=== PATIENT | female | born 1975 | race Caucasian/White ===

== ENCOUNTER → 2016-05-13 | Outpatient (CLI) | payer BC ==
[~2016-05-13] MED LIST: IBUP-1449 PO
[2016-05-13 13:49] LABS: URINE APPEARANCE CLEAR (CLEAR); URINE BILIRUBIN NEG (NEG); URINE COLOR DK YELLOW; URINE NITRITE NEG (NEG); URINE SPECIFIC GRAVITY 1.026 (1.000-1.030); UROBILINOGEN NEG (NEG)
[2016-05-13 13:59] LABS: MANUAL MICROSCOPIC REQUIRED? NO; REVIEW REQ? NO
== END | disposition home or self-care (01) ==
LOC: C.LAB1850 12:22
PROVIDERS: ATTEND Obstetrics & Gynecology
DX: R35.0 Frequency of micturition (principal)

== ENCOUNTER → 2016-05-18 | Outpatient (CLI) | payer BC ==
[2016-05-18 09:40] LABS: PREG INTERNAL NEGATIVE QC NEG CLEAR BACKGROUND; PREG INTERNAL POSITIVE QC POS CONTROL LINE
[2016-05-18 11:05] LABS: THYROID STIMULATING HORMONE 0.774 uIu/ml (0.300-4.500)
== END | disposition home or self-care (01) ==
LOC: C.LAB1850 07:04
PROVIDERS: ATTEND Obstetrics & Gynecology
DX: N91.2 Amenorrhea, unspecified (principal)

== ENCOUNTER → 2016-05-20 | Outpatient (CLI) | payer BC | END | disposition home or self-care (01) | LOC: C.LAB1850 16:47 | PROVIDERS: ATTEND Obstetrics & Gynecology | DX: N91.2 Amenorrhea, unspecified (principal) ==

== ENCOUNTER → 2017-01-08 | Outpatient (CLI) | payer BC | END | disposition home or self-care (01) | LOC: C.PAPS 08:40 | PROVIDERS: ATTEND Obstetrics & Gynecology | DX: Z01.411 Encounter for gynecological examination (general) (routine) with abnormal findings (principal); R87.610 Atypical squamous cells of undetermined significance on cytologic smear of cervix (ASC-US) ==

== ENCOUNTER → 2017-03-31 | Outpatient (CLI) | payer BC ==
--- NOTE | 2017-03-31 16:02 | MAMMOGRAPHY REPORT ---
BILATERAL DIGITAL SCREENING MAMMOGRAM TOMOSYNTHESIS WITH CAD: 03/31/2017 CLINICAL HISTORY: Routine screening. Patient has no complaints. TECHNIQUE: Breast tomosynthesis in addition to standard 2D mammography was performed. Current study was also evaluated with a Computer Aided Detection (CAD) system. COMPARISON: Comparison is made to exams dated: 12/26/2015 mammogram, 10/15/2014 mammogram, 08/21/2013 ult rasound, 08/21/2013 mammogram, and 07/20/2013 mammogram - [facility]. BREAST COMPOSITION: There are scattered areas of fibroglandular density in both breasts. FINDINGS: No suspicious masses, calcifications, or areas of architectural distortion are noted in ei ther breast. There has been no significant interval change compared to prior exams. Small circumscri bed benign-appearing masses are again noted bilaterally. IMPRESSION: ACR BI-RADS CATEGORY 2: BENIGN There is no mammographic evidence of malignancy. A 1 year screening mammogram is recommended. The pa tient will receive written notification of the results. Approximately 10% of breast cancers are not detected with mammography. A negative mammographic report should not delay biopsy if a clinically suggestive mass is present. Chiara Azul M.D. ah/:03/31/2017 15:04:36 Biology Instructor: Analilia SOFIA(R)(M), [facility] letter sent: Normal 1/2 BI-RADS Code: ACR BI-RADS Category 2: Benign
== END | disposition home or self-care (01) ==
LOC: C.MAMM 13:58
PROVIDERS: ATTEND Physician Assistant
DX: Z12.31 Encounter for screening mammogram for malignant neoplasm of breast (principal)

== ENCOUNTER → 2017-06-25 | Outpatient (CLI) | payer OTHER ==
--- NOTE | 2017-06-25 13:40 | DIAGNOSTIC IMAGING REPORT ---
RIGHT CLAVICLE 2 VIEWS HISTORY: MASS OR LUMP ON NECK COMPARISON: Chest 02/04/2016. FINDINGS: No acute fracture or dislocation within the right clavicle. There appears be focal thickening/bony protrusion within the distal shaft of the right clavicle. This may be new from the 2016 chest x-ray. There is mild AC joint arthrosis. Soft tissues are unremarkable. No radiopaque foreign bodies. IMPRESSION: Possible focal thickening/bony protrusion at the distal shaft of right clavicle. This could be due to an old fracture. Electronically signed by: Prateek Tena M.D. 06/25/2017 1:39 PM Dictated Date/Time: 06/25/2017 1:35 PM
== END | disposition home or self-care (01) ==
LOC: C.RAD1850 12:56
PROVIDERS: ATTEND Physician Assistant
DX: R22.1 Localized swelling, mass and lump, neck (principal)

== ENCOUNTER → 2017-06-25 | Outpatient (CLI) | payer OTHER ==
--- NOTE | 2017-06-25 14:11 | DIAGNOSTIC IMAGING REPORT ---
ULTRASOUND OF THE THYROID GLAND CLINICAL HISTORY: Neck mass/swelling. COMPARISON STUDY: No priors. TECHNIQUE: Real-time, grayscale, and color flow sonography of the thyroid gland is performed utilizing a high-frequency linear transducer. Images are reviewed in the transverse and longitudinal planes. FINDINGS: Right lobe: The right lobe of the thyroid gland is normal in size and homogeneous in echotexture, measuring 4.8 x 1.7 x 1.4 cm. A hypoechoic nodule in the lower pole measures 0.6 x 0.5 x 0.5 cm. Left lobe: The left lobe of the thyroid gland is normal in size and homogeneous in echotexture, measuring 5.0 x 1.4 x 1.6 cm. Isthmus: The thyroid isthmus is normal in appearance and measures 0.4 cm in AP diameter. IMPRESSION: 1. The thyroid gland is normal in size and homogeneous in echotexture. 2. A subcentimeter hypoechoic nodule is incidentally noted in the right lobe. Electronically signed by: Pedro Luis Lorenzana M.D. 06/25/2017 2:09 PM Dictated Date/Time: 06/25/2017 2:08 PM
== END | disposition home or self-care (01) ==
LOC: C.ULTR 13:30
PROVIDERS: ATTEND Physician Assistant
DX: R22.1 Localized swelling, mass and lump, neck (principal); E04.1 Nontoxic single thyroid nodule

== ENCOUNTER → 2017-07-06 | Outpatient (CLI) | payer OTHER ==
[~2017-07-06] MED LIST changes: +OPTIRAY 320 IV PRN
--- NOTE | 2017-07-06 12:30 | DIAGNOSTIC IMAGING REPORT ---
R UPPER EXTREMITY WITH CLINICAL HISTORY: SWELLING/THICKENING OF CLAVICLE pain. Edema. TECHNIQUE: Transaxial acquisition with multi axial reformatted images COMPARISON STUDY: None FINDINGS: Unremarkable soft tissue characteristics about the right clavicle and right shoulder. No abnormal mass or collection. The osseous structures the right shoulder right clavicle are unremarkable. The sternomanubrial joint is unremarkable. IMPRESSION: Negative study. No evidence for abnormal mass collection or bony exostosis. The above report was generated using voice recognition software. It may contain grammatical, syntax or spelling errors. Electronically signed by: Nico Saravia M.D. 07/06/2017 12:29 PM Dictated Date/Time: 07/06/2017 12:23 PM
--- NOTE | 2017-07-06 12:36 | DIAGNOSTIC IMAGING REPORT ---
L UPPER EXTREMITY WITH HISTORY: 42 years-old Female SWELLING/THICKENING OF CLAVICLE acute swelling in the region of the left clavicle. COMPARISON: Right upper extremity CT of same day, right clavicle radiograph 06/25/2017 TECHNIQUE: Multiple axial CT images of the left upper extremity were obtained following the intravenous administration of 119 mL Optiray 320 IV contrast. A dose lowering technique was used consistent with the principals of ALARA. FINDINGS: There is minimal bilateral atelectasis. Indeterminate 4 mm pleural-based nodule of the apical posterior segment left upper lobe, likely benign. The imaged trachea and bronchi appear patent. No pneumothorax. The visualized mediastinal structures appear unremarkable. No pathologic adenopathy identified. The imaged soft tissues of the neck are also unremarkable. Indeterminate 6 mm low attenuating nodule of the right thyroid. No enhancing soft tissue mass identified within the imaged upper chest wall or clavicular regions. No acute rib or clavicular fracture identified. Mild degenerative changes are seen about the left acromioclavicular and sternoclavicular joints. Clavicle appears intact. No focal bony mass lesions identified. No significant degenerative changes about the glenohumeral joint. Imaged soft tissues are unremarkable. No intra-articular loose body identified. The study is not tailored to assess the rotator cuff musculature or tendons. Mild endplate spurring and facet arthrosis is noted within the imaged thoracic and lumbar spine. IMPRESSION: 1. Mild degenerative changes of the sternoclavicular and acromioclavicular joints without acute fracture or dislocation identified. 2. No soft tissue mass identified. 3. Mild degenerative changes of the imaged spine. The above report was generated using voice recognition software. It may contain grammatical, syntax or spelling errors. Electronically signed by: Jose Perez M.D. 07/06/2017 12:35 PM Dictated Date/Time: 07/06/2017 12:26 PM
== END | disposition home or self-care (01) ==
LOC: C.CTS 11:48
PROVIDERS: ATTEND Physician Assistant
DX: R22.1 Localized swelling, mass and lump, neck (principal)

== ENCOUNTER 2018-05-27 05:51 | Observation (INO) ==
--- NOTE | 2018-05-05 13:23 | PAT Medication Instructions ---
Medication Instructions Date of Service May 05, 2018 Home Medications escitalopram oxalate [Lexapro] 10 mg PO QPM lisinopril 10 mg PO QPM norethindrone acetate 5 mg PO TID ASK your surgeon for instructions norethindrone acetate 5 mg PO TID Take morning of surgery NOTHING TO EAT OR DRINK AFTER MIDNIGHT Take evening before surgery escitalopram oxalate [Lexapro] 10 mg PO QPM lisinopril 10 mg PO QPM Other Notes If you have any questions please call us at [phone] or [phone] or [phone] or [phone]
--- NOTE | 2018-05-05 15:55 | Anesthesiology Consultation ---
Date of Service May 05, 2018 Assessment & Plan (1) Encounter for pre-operative examination: Chart Review Chart Review: Acceptable Risk for Surgery and Patient seen in Pre Admission Testing Consults Requested none Teaching & Discussion Pre-Anesthesia Teaching/Discussion Notes: Instructed NPO after midnight before surgery, except medications with 15 cc of water. Medication instructions provided according to the PAT guidelines. History Surgery Operation Date: 05/27/18 09:50 Proposed Procedures p Robotic Total Laparoscopy Hysterectomy - Gianfranco Sawant MD Height/Weight Height: 5 ft 6 in Weight: 117.3 kg Allergies Allergy/AdvReac Type Severity Reaction Status Date / Time Cephalosporins Allergy Mild RASH Verified 04/29/18 09:22 Medications Home Medications Medication Instructions Recorded Confirmed Last Taken escitalopram oxalate [Lexapro] 10 mg PO QPM 04/13/18 04/29/18 Unknown lisinopril 10 mg PO QPM 04/13/18 04/29/18 Unknown norethindrone acetate 5 mg PO TID 04/29/18 04/29/18 Unknown Past Medical History Medical History Anxiety Colon polyp REMOVED 2011 Depression Hypertension Iron deficiency anemia Restless leg syndrome Uterine fibroid Past Family History Family History Father Family hx colonic polyps Past Surgical History Surgical History History of D&C History of appendectomy History of colonoscopy History of endometrial ablation History of tooth extraction History of tubal ligation Past Anesthesia History No Hx of Anesthesia Complications and No Family Hx of Anesthesia Complications ( H/o PONV (son)) History of PONV No Motion Sickness Screening History of Motion Sickness: No Social History Smoking Status: Never smoker Do You Dip or Chew Tobacco: No Hx Alcohol Use: Yes Alcohol type: wine alcohol intake frequency: a few times a month Hx Substance Use: No substance use type: does not use Exercise / Class Metabolic Activity II 4-5 Yardwork/Stairs/Walk up hill (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 Denies SOB or CP. ) Review of Systems Patient denies chest pain, shortness of breath, dyspnea on exertion, joint pain , reflux, wheezing, palpitations. +cough (from lisinopril) Physical Exam Vital Signs BP: 115/77 P: 101 R: 18 T: 98.5 SPO2: 96% on RA Constitutional + morbidly obese ENMT Thyromental Distance: > or= 3.5 Finger Breadths (4) Mallampati Class: II (narrow airway) Neck normal visual inspection and trachea midline; neck extension not limited Respiratory normal respiratory effort Auscultation: lungs clear to auscultation bilaterally Cardiovascular Rate/Rhythm: regular rate and regular rhythm Heart Sounds: no murmur Neurologic moves all extremities Psychiatric Orientation: alert and oriented x 3 Testing Laboratory Results 05/05/18 16:10 Blood Type O Positive 05/05/18 16:10 Antibody Screen NEGATIVE 05/05/18 16:10 Patient has known anemia and has not been taking her ferrous sulfate. We lelo these labs to have an idea of where she was at this point.
[2018-05-05 17:13] LABS: Hematocrit (blood only) 33.4 % (37-47); Hemoglobin 10.1 g/dL (12.0-16.0); Mean Corpuscular Hgb Conc 30.2 g/dL (32-36); Mean Corpuscular Volume 73.4 fL (80-100); Mean Platelet Volume 9.1 fL (7.4-10.4); Platelet Count 466 K/uL (130-400); RDW Coefficient of Variation 15.3 % (11.5-14.5); RDW Standard Deviation 40.5 fL (36.4-46.3); Red Blood Count 4.55 M/uL (4.2-5.4); White Blood Count 7.38 K/uL (4.8-10.8)
[2018-05-05 17:19] LABS: Basophils # (auto) 0.02 K/uL (0-0.2); Basophils % (auto) 0.3 %; Eosinophils # (auto) 0.16 K/uL (0-0.5); Eosinophils % (auto) 2.2 %; Hypochromasia Present; Immature Granulocytes # (auto) 0.04 K/uL (0.00-0.02); Immature Granulocytes % (auto) 0.5 %; Lymphocytes # (auto) 1.76 K/uL (1.2-3.4); Lymphocytes % (auto) 23.8 %; Monocytes # (auto) 0.81 K/uL (0.11-0.59); Neutrophils # (auto) 4.59 K/uL (1.4-6.5); Neutrophils % (auto) 62.2 %
[2018-05-27] MEDS ORDERED: LR 15ML/HR IV SCH (06:00)
[2018-05-27] MEDS ORDERED: LACTATED RINGER'S 1,000 ML IV SCH (06:00)
[2018-05-27] MEDS ORDERED: PHENAZOPYRIDINE HCL 100 MG TAB PO ONE (06:00)
[2018-05-27] MEDS ORDERED: GENTAMICIN SULFATE IV SCH (06:00)
[2018-05-27] MEDS ORDERED: CLINDAMYCIN 600 MG/54 ML BAG IV SCH (06:00)
[2018-05-27] MEDS ORDERED: GENTAMICIN SULFATE 180 MG in DEXTROSE 5% 100 ML IV SCH (06:00)
[2018-05-27] MEDS ORDERED: DEXTROSE 5% IV SCH (06:00)
[2018-05-27 06:40] LABS: Basophils # (auto) 0.02 K/uL (0-0.2); Basophils % (auto) 0.2 %; Eosinophils # (auto) 0.17 K/uL (0-0.5); Eosinophils % (auto) 1.8 %; Hematocrit (blood only) 34.5 % (37-47); Hemoglobin 10.4 g/dL (12.0-16.0); Immature Granulocytes # (auto) 0.03 K/uL (0.00-0.02); Immature Granulocytes % (auto) 0.3 %; Lymphocytes # (auto) 1.64 K/uL (1.2-3.4); Lymphocytes % (auto) 17.7 %; Mean Platelet Volume 8.9 fL (7.4-10.4); Monocytes % (auto) 7.6 %; Neutrophils # (auto) 6.69 K/uL (1.4-6.5); Neutrophils % (auto) 72.4 %; Platelet Count 489 K/uL (130-400); RDW Coefficient of Variation 15.8 % (11.5-14.5); RDW Standard Deviation 40.1 fL (36.4-46.3); Red Blood Count 4.93 M/uL (4.2-5.4); White Blood Count 9.25 K/uL (4.8-10.8)
[2018-05-27 06:49] LABS: Mean Corpuscular Hgb Conc 30.1 g/dL (32-36)
[2018-05-27 06:57] LABS: Pregnancy Test, Serum Negative (Negative)
[2018-05-27 07:02] LABS: Microcytosis Present; Poikilocytosis Present
[2018-05-27] MEDS ORDERED: PROPOFOL IV EMULSION 10 MG/ML 20 ML VIAL IV ONE (07:14)
[2018-05-27] MEDS ORDERED: LARYING-O-JET KIT (LTA) ONE (07:14)
[2018-05-27] MEDS ORDERED: GLYCOPYRROLATE 0.2 MG/ML VIAL ONE ×2 (07:14→09:18)
[2018-05-27] MEDS ORDERED: NEOSTIGMINE METHYLSULFATE 5 MG/5 ML SYR ONE (07:14)
[2018-05-27] MEDS ORDERED: MIDAZOLAM HCL 1 MG/ML 2ML VIAL ONE (07:14)
[2018-05-27] MEDS ORDERED: DEXAMETHASONE SOD INJ 4 MG/ML VIAL ONE (07:14)
[2018-05-27] MEDS ORDERED: LIDOCAINE HCL 2% 2 ML VIAL/AMP(20MG/ML) INFIL ONE (07:14)
[2018-05-27] MEDS ORDERED: ONDANSETRON INJ 2 MG/ML 2 ML VIAL ONE ×2 (07:14→09:18)
[2018-05-27] MEDS ORDERED: fentaNYL citrate 100 MCG/2 ML VIAL ONE ×2 (07:14→09:14)
[2018-05-27] MEDS ORDERED: BUPIVACAINE 0.5 % 5 MG/1 ML MPF 30ML VIAL ONE (07:20)
--- NOTE | 2018-05-27 07:28 | History & Physical Bridge Note ---
Date of Service May 27, 2018 History & Physical Bridge Note I have examined the patient, reviewed the History & Physical and in the interval since the performance of the History & Physical I have noted the following changes of clinical significance: no changes noted
[2018-05-27] MEDS ORDERED: NALOXONE HCL 0.4 MG/1 ML VIAL/CARP IV PRN (08:23)
[2018-05-27] MEDS ORDERED: LABETALOL HCL IV 5 MG/ML 20ML IV PRN (08:23)
[2018-05-27] MEDS ORDERED: ATROPINE SULFATE 0.1 MG/ML 10ML SYR IV PRN (08:23)
[2018-05-27] MEDS ORDERED: ONDANSETRON INJ 2 MG/ML 2 ML VIAL IV PRN ×2 (08:23→11:20)
[2018-05-27] MEDS ORDERED: FLUMAZENIL 0.1 MG/1 ML 10 ML VIAL IV PRN (08:23)
[2018-05-27] MEDS ORDERED: PROMETHAZINE HCL 12.5 MG in SODIUM CHLORIDE 0.9% 50 ML IV PRN ×2 (08:23→11:20)
[2018-05-27] MEDS ORDERED: ePHEDrine sulfate 50 MG/ML AMP IV PRN (08:23)
[2018-05-27] MEDS ORDERED: TISSEEL FIBRIN SEALANT 4ML TOP ONE (08:56)
[2018-05-27] MEDS ORDERED: PHENYLEPHRINE 100MCG/ML 5ML SYR ONE (09:18)
[2018-05-27] MEDS ORDERED: HYDROmorphone INJ 2 MG/ML SYR/VIAL ONE (09:33)
[2018-05-27] MEDS ORDERED: SURGICEL ABSORB HEMOSTAT 2IN X 14IN TOP ONE (09:43)
[2018-05-27] MEDS ORDERED: LABETALOL HCL IV 5 MG/ML 20ML IV ONE (09:51)
[2018-05-27] MEDS ORDERED: ROCURONIUM BROMIDE 10 MG/ML 5 ML VIAL ONE (10:35)
--- NOTE | 2018-05-27 11:00 | Post Operative Brief Note ---
Immediate Post Op Note v1 Date of Surgery May 27, 2018 Pre & Post Diagnosis Operation Date: 05/27/18 07:30 Pre-Op Diagnosis: Dysfunctional Uterine Bleeding Post-Op Diagnosis: Dysfunctional Uterine Bleeding Procedure Operation Date: 05/27/18 07:30 Actual Procedures p Robotic Total Laparoscopy Hysterectomy, Bilateral salpingectomy, cystoscopy - Gianfranco Sawant MD EBL [id number] Complications: None Findings: Enlarged ~14 week fibroid uterus, Extensive endometriosis causing significant inflammatory changes throughout pelvis, Adhesive disease requiring > 30 minute lysis of adhesions. Surgeon Gianfranco Sawant MD Wax Pattern Assembler Dr. Nguyen Estimated Blood Loss 330 Findings Consistent with Post-Op Diagnosis Drains Brooke Catheter
[2018-05-27] MEDS ORDERED: OXYCODONE/ACETAMINOPHEN 5mg/325mg TAB PO PRN (11:20)
[2018-05-27] MEDS ORDERED: KETOROLAC 30 MG/ML VIAL IV PRN (11:20)
[2018-05-27] MEDS ORDERED: ACETAMINOPHEN 325 MG TAB PO PRN (11:20)
[2018-05-27] MEDS ORDERED: SIMETHICONE 80 MG CHEW PO PRN (11:20)
[2018-05-27] MEDS: HYDROmorphone INJ 1 MG/ML SYRINGE IV PRN ×2 (11:30→11:37)
--- NOTE | 2018-05-27 11:50 | Anesthesiology Progress Note ---
Date of Service May 27, 2018 Anesthesia Post Procedure Vital Signs Vital Signs: Temp Pulse Pulse Pulse Resp BP BP 05/27/18 11:48 37.2 C 05/27/18 11:46 112 H 15 149/81 H 05/27/18 11:45 113 H 16 05/27/18 11:40 107 H 18 129/75 05/27/18 11:36 108 H 19 138/82 05/27/18 11:35 109 H 23 05/27/18 11:30 108 H 21 145/95 H 05/27/18 11:26 108 H 23 151/79 H 05/27/18 11:25 112 H 17 05/27/18 11:20 111 H 16 162/92 H 05/27/18 11:18 36.2 C L 113 H 115 H 19 148/82 H 05/27/18 06:16 36.7 C 100 H 18 150/98 H BP Pulse Ox 05/27/18 11:48 92 05/27/18 11:46 93 05/27/18 11:45 93 05/27/18 11:40 98 05/27/18 11:36 97 05/27/18 11:35 96 05/27/18 11:30 96 05/27/18 11:26 99 05/27/18 11:25 96 05/27/18 11:20 97 05/27/18 11:18 148/82 H 98 05/27/18 06:16 96 Pain Intensity Bilateral Leg: Pain Intensity: 2 Abdomen: Pain Intensity: 7 Notes Mental Status: alert / awake / arousable Patient Amnestic to Procedure: Yes Nausea / Vomiting: adequately controlled Pain: adequately controlled Airway Patency, RR, SpO2: stable & adequate BP & HR: stable & adequate Hydration State: stable & adequate Anesthetic Complications: no major complications apparent
[2018-05-27] MEDS: IBUPROFEN 600 MG TAB PO PRN ×2 (17:27→21:33)
[2018-05-27] MEDS ORDERED: hydroCHLOROthiazide 25 MG TAB PO SCH (21:00)
[2018-05-27] MEDS ORDERED: ESCITALOPRAM OXALATE 10 MG TAB PO SCH (21:00)
[2018-05-27] MEDS: OXYCODONE/ACETAMINOPHEN 5mg/325mg TAB PO PRN (21:31)
[2018-05-27] MEDS: DOCUSATE SODIUM 100 MG CAP PO SCH (21:33)
[2018-05-28 06:26] LABS: Basophils # (auto) 0.01 K/uL (0-0.2); Basophils % (auto) 0.1 %; Hematocrit (blood only) 26.3 % (37-47); Immature Granulocytes # (auto) 0.05 K/uL (0.00-0.02); Immature Granulocytes % (auto) 0.4 %; Lymphocytes # (auto) 1.61 K/uL (1.2-3.4); Lymphocytes % (auto) 11.7 %; Mean Corpuscular Hgb Conc 30.4 g/dL (32-36); Mean Corpuscular Volume 69.9 fL (80-100); Mean Platelet Volume 8.8 fL (7.4-10.4); Monocytes # (auto) 1.23 K/uL (0.11-0.59); Monocytes % (auto) 8.9 %; Neutrophils # (auto) 10.91 K/uL (1.4-6.5); Neutrophils % (auto) 78.9 %; Platelet Count 440 K/uL (130-400); RDW Coefficient of Variation 16.1 % (11.5-14.5); RDW Standard Deviation 40.6 fL (36.4-46.3); Red Blood Count 3.76 M/uL (4.2-5.4); White Blood Count 13.81 K/uL (4.8-10.8)
[2018-05-28 06:54] LABS: Hypochromasia Present; Microcytosis Present; Polychromasia 1+
[2018-05-28] MEDS: DOCUSATE SODIUM 100 MG CAP PO SCH (08:21)
[2018-05-28] MEDS: IBUPROFEN 600 MG TAB PO PRN (08:23)
[2018-05-28] MEDS: OXYCODONE/ACETAMINOPHEN 5mg/325mg TAB PO PRN (08:24)
--- NOTE | 2018-05-28 09:05 | Gynecologic Progress Note ---
Date of Service May 28, 2018 Assessment & Plan (1) Encounter for pre-operative examination: POD 1 From [facility]. Patient doing well and is stable for discharge. Subjective Patient doing well. Pain controlled. Tolerating regular diet/voiding/ ambulating. Physical Exam 2 Vital Signs (Past 24 Hours): Last Vital Signs Temp 36.7 C 05/28/18 03:30 Pulse 90 05/28/18 03:30 Resp 16 05/28/18 03:30 BP 111/62 05/28/18 03:30 Pulse Ox 94 05/28/18 03:30 Respiratory: normal respiratory effort
--- NOTE | 2018-06-02 12:48 | Discharge Summary ---
PROCEDURE DURING ADMISSION: Total laparoscopic hysterectomy, bilateral salpingectomy and cystoscopy with lysis of adhesions. HOSPITAL COURSE: The patient presented for the above stated procedure. The procedure went without complication. The patient was admitted for observation for postoperative care. The patient was opted to stay overnight; however, did recover well and was stable for discharge the next morning. The patient was meeting all discharge requirements and was discharged in excellent condition. The patient is scheduled for 2-week postoperative visit and was given detailed postoperative precautions that were both written and verbal.
--- NOTE | 2018-06-02 13:42 | Operative Report ---
DATE OF OPERATION: 05/27/2018 PROCEDURE: Robotic assisted total laparoscopic hysterectomy, bilateral salpingectomy and cystoscopy with lysis of adhesions. PREOPERATIVE DIAGNOSES: 1. Dysfunctional uterine bleeding. 2. Anemia. POSTOPERATIVE DIAGNOSES: 1. Dysfunctional uterine bleeding. 2. Anemia. 3. Endometriosis. 4. Abdominal and pelvic adhesive disease. SURGEON: Dr. Gianfranco Sawant. EYE DROPPER ASSEMBLER: Dr. Fatmata Nguyen. ESTIMATED BLOOD LOSS: 300 mL. DRAINS: Brooke. FLUIDS: Continuous lactated ringer. URINE OUTPUT: 250 mL via Brooke. COMPLICATIONS: None. FINDINGS: There was noted to be enlarged fibroid uterus approximately 14 weeks' size with signs of adenomyosis. There was noted to be extensive endometriosis with scarring adhesions throughout the pelvis as well as adhesion of the ascending and descending colon to the sidewall overlying the IP ligament. The endometriosis and scarring was most extensive on the left side of the pelvis with the uterus and left adnexa being pulled to the left side. There was noted to be an endometriosis lesion just lateral to the uterosacral ligament, which was also pulling the distal rectum up into near the cervix. The tissues throughout the pelvis did show extensive signs of inflammation with very easy bleeding and were very friable with breakdown with just very gentle traction at times. INDICATIONS: The patient is a 42-year-old with a long history of menometrorrhagia and dysfunctional uterine bleeding. The patient has been treated previously with endometrial ablation in 2011, which she reports worked for approximately 1 year. Bleeding was then resumed and has increased in both duration and quantity and is currently experiencing near constant bleeding if not on medications. The patient has been treated with a norethindrone taper due to her heavy bleeding, has had anemia rather persistently for the last several months. The patient had undergone transvaginal ultrasound, which did show an enlarged uterus with several uterine fibroids, largest measuring approximately 3.5-4 cm. Management options were discussed in clinic and the patient opted to proceed with definitive management via total laparoscopic hysterectomy with ovarian conservation. Consents were reviewed and signed in clinic. DESCRIPTION OF PROCEDURE: The patient was taken to the Operating Room after consents were ensured. Upon presentation, she was properly identified. General endotracheal anesthesia was obtained without difficulty. The patient was then prepped and draped in the normal sterile fashion. A preprocedural timeout was performed. A Can'tWaitare uterine manipulator was then placed in the uterus and the Brooke was placed to decompress the bladder. The laparoscopic portion of the case was then initiated. A 12 mm incision was made on the superior aspect of the umbilicus. A Veress needle was inserted through the incision and the abdomen was insufflated to 15 mmHg. There was noted to be a symmetrical abdominal rise and tympany over the liver and low opening pressure consistent with appropriate intraabdominal insufflation. A 12 mm optically guided trocar was introduced through the incision. Upon inspection, there was noted to be atraumatic entry. The 8 mm incisions were then made in the right and left lower quadrants and 8 mm trocars were inserted under direct visualization and noted to be atraumatic. A 5 mm incision was made in the left upper quadrant, a 5 mm trocar was placed. The robot was then docked. The hysterectomy portion of the procedure was then initiated. The right round ligament was identified, cauterized and serially dissected. The bladder flap was then initiated on the right side continuing over to approximately the midline. The uteroovarian ligament was identified on the right, serially cauterized and dissected. This was continued down the right broad ligament, which was serially cauterized and dissected to the level of uterine vessels. The procedure was then moved to the left side of the uterus. The left side was noted to be rather extensively retracted into the left sidewall due to the extensive endometriosis, which made dissection of the left side significantly more difficult. The left round ligament was then identified, cauterized and dissected. The bladder flap was then continued anteriorly connecting with the left spot with the right-sided initiated bladder flap and the bladder was dissected off the lower uterine segment and cervix to clear until the VCare uterine manipulator cup could be identified in the lower uterine segments at the distal end of the cervix and vagina. The left uteroovarian ligament was identified, serially cauterized and dissected. The broad ligament although retracted into the left side wall, was dissected up against the uterus down to the level of the left uterine vessels. The colpotomy was then started anteriorly to help demarcate the cervix and vagina, which was then continued circumferentially around the right uterine vessels which were then serially cauterized and divided. The colpotomy was then continued posteriorly to the level of the left uterine vessels, which were then serially cauterized and dissected freeing the uterus and cervix from the vagina. The uterus was then delivered through the vagina without significant difficulty. The right and left fallopian tubes have been identified, serially cauterized and dissected and delivered through the colpotomy. The vaginal cuff was then reapproximated with V-Loc suture to an airtight seal. A cystoscopy was then performed with intact bladder and bilateral ureteral efflux noted. Tisseel was then placed over the raw pedicle edges and overlying the bladder and vaginal cuff. Needle, sponge and instrument counts were correct at the completion of the case and the patient was awoken from anesthesia and taken to Recovery Room in stable condition. I attest to the content of the Intraoperative Record and any orders documented therein. Any exception s are noted below.
== END 2018-05-28 11:23 | disposition home or self-care (01) ==
LOC: 4N 05:51 → ASU 05:51